=== PATIENT | female | born 1955 | race Caucasian/White ===

== ENCOUNTER 2024-12-27 08:53 | Day surgery (SDC) | payer MEDICAID, OTHER ==
[2024-12-25 11:24] LABS: Absolute Eosinophils 0.2 K/uL (0-0.5); Absolute Lymphocytes (CBC) 1.2 K/uL (0.7-4.9); Absolute Monocytes 0.4 K/uL (0.1-1.3); Absolute Neutrophil 3.4 K/uL (1.8-8.0); Basophils % 0.6 % (0-1.3); Eosinophils % 3.5 % (0-4.4); Hematocrit 42.5 % (36.0-45.0); Hemoglobin 14.5 g/dL (12.0-15.0); Lymphocytes % 22.5 % (15.3-44.8); MCH 29.3 pg (27.0-35.0); MCHC 34.1 g/dL (32.0-36.0); MCV 85.7 fL (80-100); MPV 6.7 fL (7.6-11.3); Monocytes % 7.7 % (3.3-12.3); Neutrophils % 65.7 % (41.7-73.7); Platelets 301 thou/uL (152-406); RBC Red Blood Cell Count 4.96 M/uL (3.86-4.86)
[2024-12-25 11:40] LABS: Anion Gap 8.1 mEq/L (5.0-15.0); Potassium 4.1 mEq/L (3.5-5.1)
--- NOTE | 2024-12-25 12:33 | EKG ---
Test Date: 2024-12-25 Test Time: 11:07:54 Temperer: KAVITA MEASUREMENT RESULTS: Intervals: Rate: 75 AR: 214 QRSD: 86 QT: 390 QTc: 435 [place]: P: 58 AR: 214 QRS: 73 T: 47 INTERPRETIVE STATEMENTS: Sinus rhythm with 1st degree AV block Otherwise normal ECG Compared to ECG 10/11/2017 12:10:28 First degree AV block now present Atrial premature complex(es) no longer present T-wave abnormality no longer present Electronically Signed On 12-25-24 12:32:18 CDT by Cezar Crespo
[2024-12-27] MEDS: CEFAZOLIN SODIUM 1 GM/VIAL ONE (09:29)
[2024-12-27] MEDS: Ringers Lactate 1,000 ML IV ONE (09:29)
[2024-12-27] MEDS: LIDOCAINE HCL/EPINEPHRINE 20 ML MDV ONE (09:30)
[2024-12-27] MEDS ORDERED: ONDANSETRON 4 MG/2 ML VIAL ONE (09:37)
[2024-12-27] MEDS ORDERED: LIDOCAINE 2% MPF 5 ML VIAL ONE (09:37)
[2024-12-27] MEDS ORDERED: propofoL 200 MG/20 ML VIAL IV ONE (09:37)
[2024-12-27] MEDS ORDERED: FENTANYL CITR 100 MCG/2 ML ONE (09:37)
[2024-12-27] MEDS ORDERED: EPHEDRINE SULF 50 MG/ML VIAL ONE (10:44)
[2024-12-27] MEDS ORDERED: dexAMETHasone 10 MG/ML VIAL ONE (10:45)
--- NOTE | 2024-12-27 11:09 | P.OP ---
Preoperative diagnosis: LEFT Forearm / Elbow Cyst Postoperative diagnosis: LEFT Forearm / Elbow Cyst Primary procedure: Excision of LEFT Forearm / Elbow Cyst Anesthesia: GETA + Local Estimated blood loss: <5cc Specimen: 1.2cm cyst Findings: 1.2cm cyst Complications: None Transferred to: Recovery Room Condition: Good
[2024-12-27 11:51] VITALS: O2SAT 99
[2024-12-27 12:12] VITALS: BP 116/75; TEMP 97.7
--- NOTE | 2024-12-27 12:30 | OP ---
Date of Procedure: 12/27/2024 Surgeon: Preston Suazo MD, Preoperative Diagnosis: Left forearm/elbow cyst. Postoperative Diagnosis: Left forearm/elbow cyst. Procedure Performed: Excision of left forearm/elbow cyst. Anesthesia: General endotracheal plus local with 1% lidocaine with epinephrine. Estimated Blood Loss: Less than 5 cc. Specimens: 1.2 cm cystic structure from the left forearm. Findings: Consistent 1.2 cm non-sebaceous non-lipomatous cyst. Complications: None. The patient was transferred to recovery room in good condition. Procedure In Detail: After informed consent was obtained, the patient was brought to the operating r oom, prepped and draped in the usual sterile fashion. After adequate anesthesia was achieved, I made a linear incision overlying the obvious protrusion of a mass on the left forearm area distal to the elbow down to subcutaneous tissues. I immediately encountered a discolored purplish cystic structure . This was circumferentially dissected free and sent off for pathologic examination. The area was c opiously irrigated. It did not appear to connect with the joint capsule based on the appearance and did not appear lipomatous or like a typical sebaceous cyst and sent off for pathologic examination. The area was copiously irrigated. The deep dermal plane was closed using an interrupted 3-0 Vicryl s uture and skin was closed with a 4-0 Monocryl in a running fashion. Dermabond was placed over top. The patient tolerated the procedure without incident or complication, transferred to PACU in good condition. All counts were correct at the end of the case. IVETH/ELLIE Voice ID: [id number] Report ID: [id number]
== END 2024-12-27 12:44 | disposition home or self-care (01) ==
LOC: OR 08:53
PROVIDERS: ATTEND Surgery
PROC: 0HBEXZZ Excision of Left Lower Arm Skin, External Approach (ICD-10-PCS; principal; 2024-12-27 10:45)
DX: D17.22 Benign lipomatous neoplasm of skin and subcutaneous tissue of left arm (principal)
CPT/HCPCS: 11402; 93005; 85025; 80048; 36415; 88304; J2704; J2003; J3010; J1100; J2405; J7120; J0690